=== PATIENT | female | born 1940 | race Caucasian/White ===

== ENCOUNTER → 2023-05-13 10:48 | Outpatient (CLI) | payer MEDICARE, SELFPAY ==
--- NOTE | ~2023-05-13 | MR_ITS ---
MRI of the right knee Clinical history: Pain Technique: Coronal proton density and proton density-weighted images, sagittal proton-density and T2 fat-sat images, and axial proton-density fat-saturated images were acquired. Findings: Anterior and posterior cruciate ligaments are intact. Medial collateral ligament and the la teral collateral ligament complex are intact. Popliteus tendon is intact. Medial meniscus is intact, without evidence of tear. There is an oblique tear of the posterior horn o f the lateral meniscus. 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 There is focal high-grade chondromalacia of the lateral tibial plateau. There small osteophytes of the patellofemoral compartm ent and lateral joint line. Extensor mechanism is intact. There is minimal joint effusion. No Christian's cyst. Impression: Oblique tear of the posterior horn of the lateral masses. 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 Mild degenerative change of the lateral compartment. Reviewed, dictated and finalized at location . Impression: Oblique tear of the posterior horn of the lateral masses. 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 Mild degenerative change of the lateral compartment.
== END ==
PROVIDERS: PCP Physician Assistant Surgical; Visit Provider Physician Assistant Surgical
DX: S83.281A Other tear of lateral meniscus, current injury, right knee, initial encounter (principal); M17.11 Unilateral primary osteoarthritis, right knee; X58.XXXA Exposure to other specified factors, initial encounter
CPT/HCPCS: 73721